=== PATIENT | female | born 1975 | race Caucasian/White ===

== ENCOUNTER 2019-06-14 21:41 | Emergency (ER) | payer MEDICAID ==
[~2019-06-14] VITALS: Ht 162.6 cm; Wt 93.7 kg
[~2019-06-14 21:41] MED LIST: CIPR-260 PO; ESOM20CA PO; ONDA4TAB12 PO; ONDA4TAB6 PO; ONDA8TAB9 PO
[2019-06-14] MEDS ORDERED: TETanus/Pertussis (Acell)/Diphther VAC/PF (Tdap-Adult) 0.5ml syringe IM ONE (22:15)
[2019-06-14] MEDS ORDERED: HYDROcodone/acetaminophen 5mg/325mg tablet PO ONE (22:15)
[2019-06-14] MEDS ORDERED: LORazepam 1 MG tablet PO ONE (22:15)
[2019-06-15 00:08] VITALS: BP 111/69
== END 2019-06-15 00:08 | disposition home or self-care (01) ==
LOC: ER 21:42
DX: S61.012A Laceration without foreign body of left thumb without damage to nail, initial encounter (principal); S61.211A Laceration without foreign body of left index finger without damage to nail, initial encounter; G89.29 Other chronic pain; Z98.51 Tubal ligation status; Z98.890 Other specified postprocedural states; Z60.2 Problems related to living alone; Z88.0 Allergy status to penicillin; Z91.040 Latex allergy status; Z88.6 Allergy status to analgesic agent; Z79.2 Long term (current) use of antibiotics; Z79.899 Other long term (current) drug therapy; W20.8XXA Other cause of strike by thrown, projected or falling object, initial encounter; Y93.89 Activity, other specified; Y92.009 Unspecified place in unspecified non-institutional (private) residence as the place of occurrence of the external cause; Y99.8 Other external cause status
CPT/HCPCS: 12002; 73120; 90471; 99284

== ENCOUNTER 2019-06-24 11:45 | Emergency (ER) | payer MEDICAID ==
[~2019-06-24] VITALS: Ht 162.6 cm; Wt 95.0 kg
[2019-06-24 11:51] VITALS: BP 121/73
== END 2019-06-24 12:39 | disposition home or self-care (01) ==
LOC: ER 11:45
DX: S61.012D Laceration without foreign body of left thumb without damage to nail, subsequent encounter (principal); S61.211D Laceration without foreign body of left index finger without damage to nail, subsequent encounter; G89.29 Other chronic pain; Z98.51 Tubal ligation status; Z98.890 Other specified postprocedural states; Z60.2 Problems related to living alone; Z88.0 Allergy status to penicillin; Z91.040 Latex allergy status; Z88.6 Allergy status to analgesic agent; Z79.899 Other long term (current) drug therapy; X58.XXXD Exposure to other specified factors, subsequent encounter
CPT/HCPCS: 99282

== ENCOUNTER 2020-08-17 17:42 | Emergency (ER) | payer MEDICAID ==
[2020-08-17] MEDS ORDERED: dexamethasone sod phosphate 10mg/ml inj PO STA (18:02)
== END 2020-08-17 18:58 | disposition home or self-care (01) ==
LOC: ER 17:42
DX: J02.9 Acute pharyngitis, unspecified (principal); G89.29 Other chronic pain; Z88.0 Allergy status to penicillin; Z88.6 Allergy status to analgesic agent; Z91.040 Latex allergy status; Z79.899 Other long term (current) drug therapy; Z98.51 Tubal ligation status
CPT/HCPCS: 71045; 99283; 99284

== ENCOUNTER 2021-06-10 16:59 | Emergency (ER) | payer MEDICAID | END 2021-06-10 19:04 | disposition left against medical advice (07) | LOC: ER 17:00 | DX: R10.9 Unspecified abdominal pain (principal); Z53.21 Procedure and treatment not carried out due to patient leaving prior to being seen by health care provider ==

== ENCOUNTER → 2021-07-04 | Emergency (ER) | payer MEDICAID | END | disposition left against medical advice (07) | LOC: ER 19:44 | DX: Z53.21 Procedure and treatment not carried out due to patient leaving prior to being seen by health care provider (principal) ==

== ENCOUNTER 2023-09-25 12:10 | Emergency (ER) | payer MEDICAID | END 2023-09-25 13:31 | disposition left against medical advice (07) | LOC: ER 12:10 | DX: J02.9 Acute pharyngitis, unspecified (principal); Z53.21 Procedure and treatment not carried out due to patient leaving prior to being seen by health care provider | CPT/HCPCS: 99281 ==

== ENCOUNTER 2024-07-24 14:11 | Emergency (ER) | payer MEDICAID ==
[~2024-07-24] VITALS: Ht 162.6 cm; Wt 88.9 kg
[~2024-07-24 14:11] MED LIST changes: +ONDA-243 PO; -ONDA4TAB12 PO
[2024-07-24] MEDS: ketorolac trometh 15mg/ml vial 15 MG/ML ML IM ONE (16:17)
[2024-07-24 16:20] VITALS: BP 122/78; PULSE 78; RESP 16; TEMP 97.8; O2SAT 97
== END 2024-07-24 16:23 | disposition home or self-care (01) ==
LOC: ER 14:11
DX: R51.9 Headache, unspecified (principal); Z88.0 Allergy status to penicillin; Z91.040 Latex allergy status; Z88.6 Allergy status to analgesic agent; Z79.899 Other long term (current) drug therapy; Z79.2 Long term (current) use of antibiotics; Z98.51 Tubal ligation status; Z98.890 Other specified postprocedural states; Z87.19 Personal history of other diseases of the digestive system
CPT/HCPCS: 96372; 99283; J1885